=== PATIENT | male | born 1965 | race Caucasian/White ===

== ENCOUNTER 2020-02-20 11:55 | Emergency (ER) | payer OTHER, SELFPAY ==
[2020-02-20 12:22] VITALS: BP 144/86; PULSE 100; RESP 20; TEMP 36.6; O2SAT 100
--- NOTE | 2020-02-20 12:25 | ED.SKABFB ---
HPI - Skin/Abscess/Foreign Bdy General Chief complaint: Skin/Abscess/Foreign Body Stated complaint: Rash all over Time Seen by Provider: 02/20/20 12:32 Source: patient and RN notes reviewed History of Present Illness HPI narrative: Patient is a 54-year-old male who presents to the urgent care with complaints of a rash all over . Patient states that on Wednesday he was mowing and woke up Wednesday evening with itchiness to the ankles. Patient states it is now on his bilateral knees, abdomen and bilateral arms. Patient has been using [id number] itch cream from the pharmacy but denies any relief. Patient has not taken any Benadryl. No other acute complaints. No acute distress noted. Patient read the plan of care. Some parts of this dictation were generated by voice recognition software and may contain typographical and/or grammatical inaccuracies. Related Data Home Medications Medication Instructions Recorded Confirmed atorvastatin 80 mg PO DAILY 02/20/20 02/20/20 hydrochlorothiazide 12.5 mg PO DAILY 02/20/20 02/20/20 Allergies Allergy/AdvReac Type Severity Reaction Status Date / Time No Known Allergies Allergy Verified 02/20/20 12:34 Review of Systems Review of Systems: Narrative: CONSTITUTIONAL: Denies fever, chills, or sweats. EYES: Denies visual changes, redness, or discharge. ENT: Denies rhinorrhea, congestion, sore throat, or otalgia. CARDIOVASCULAR: Denies chest pain, palpitations, or edema. RESPIRATORY: Denies cough or dyspnea. GASTROINTESTINAL: Denies abdominal pain, nausea, vomiting, or diarrhea. GENITOURINARY: Denies dysuria or hematuria. SKIN: Reports of itchy red rash bilateral ankles, knees, arms and abdomen MUSCULOSKELETAL: Denies back pain, joint pain, or myalgia. NEUROLOGIC: Denies headache, numbness, or weakness. All other systems reviewed are negative, except as documented in HPI. [facility] Past Medical History Medical History (Updated 02/20/20 @ 12:45 by RON Brock) History of CVA (cerebrovascular accident) Hypercholesterolemia Hypertension Comments At the time of my signature, I reviewed and agree with the nursing past medical, surgical, social, and family history. There is no relevant family history pertinent to the patient complaint. Exam Narrative: Exam Narrative: GENERAL: This is a well-nourished, well-developed patient, poor hygiene HEAD: normocephalic, atraumatic. EYES: PERRL. Sclera clear/white. Vision is grossly intact. EARS: External ears normal NOSE: External nose normal with no obvious nasal discharge, nares without redness, no rhinorrhea. THROAT: Mucous membranes moist NECK: Neck supple, SKIN: Pruritic erythemic pustular scabies lesions noted to the bilateral lower extremities, bilateral knees, bilateral wrists, and around the waistline. good texture and turgor. NEURO: awake, alert, and oriented to person, place and time. There were no obvious focal neurologic abnormalities. EXTREMITIES: No clubbing, cyanosis, or edema. Course Vital Signs Vital signs: Vital Signs Temperature 97.8 F 02/20/20 12:22 Pulse Rate 100 02/20/20 12:22 Respiratory Rate 02/20/20 12:22 Blood Pressure 144/86 H 02/20/20 12:22 Pulse Oximetry 100 02/20/20 12:22 Temperature 97.8 F 02/20/20 12:22 Pulse Rate 100 02/20/20 12:22 Respiratory Rate 02/20/20 12:22 Blood Pressure 144/86 H 02/20/20 12:22 Pulse Oximetry 100 02/20/20 12:22 Reviewed-patient is informed that they may have pre-hypertension or hypertension based on a blood pressure reading in the department. I recommend the patient call the primary care provider listed on their discharge instructions or a physician of their choice this week to arrange follow-up for further evaluation of possible pre-hypertension or hypertension. MDM - Skin/Abscess/Foreign Bdy MDM Narrative Medical decision making narrative: Advised the patient to take the oral medication exactly how directed. It is important th
== END 2020-02-20 12:50 | disposition home or self-care (01) ==
PROVIDERS: Emergency Provider Nurse Practitioner Family; PCP Family Medicine
DX: B86 Scabies (principal); Z86.73 Personal history of transient ischemic attack (TIA), and cerebral infarction without residual deficits; E78.00 Pure hypercholesterolemia, unspecified; I10 Essential (primary) hypertension
CPT/HCPCS: 99213; G0463

== ENCOUNTER 2020-02-26 10:25 | Emergency (ER) | payer OTHER, SELFPAY ==
--- NOTE | 2020-02-26 10:34 | ED.EXTPRO ---
HPI - Extremity Problem General Chief complaint: Skin/Abscess/Foreign Body Stated complaint: left foot swollen Time Seen by Provider: 02/26/20 10:55 Source: patient and RN notes reviewed Mode of arrival: ambulatory Limitations: no limitations History of Present Illness HPI Narrative: 54-year-old male presents with concern for left foot swelling, pain, redness. Reports he was treated for scabies 1 week ago. Reports the rash on his bilateral lower legs have turned to scabs which she has been scratching. Reports the last 2 days he has had redness, swelling, pain to the left foot, mainly on the dorsal aspect of the foot. He denies intervention. MD Complaint: extremity swelling Related Data Home Medications Medication Instructions Recorded Confirmed atorvastatin 80 mg PO DAILY 02/20/20 02/26/20 hydrochlorothiazide 12.5 mg PO DAILY 02/20/20 02/26/20 Allergies Allergy/AdvReac Type Severity Reaction Status Date / Time No Known Allergies Allergy Verified 02/26/20 10:49 Review of Systems Review of Systems: Narrative: CONSTITUTIONAL: Denies malaise, chills, sweats, or fever. CARDIOVASCULAR: Denies chest pain, palpitations, or edema. RESPIRATORY: Denies cough or dyspnea. SKIN: Reports left foot redness, swelling, tenderness. Reports scabs from healing rash MUSCULOSKELETAL: Denies myalgia. Reports left foot pain NEUROLOGIC: Denies numbness, weakness All systems reviewed & are unremarkable except as noted in HPI and below PMFSH Past Medical History Medical History (Updated 02/26/20 @ 11:06 by Terra Salgado NP) History of CVA (cerebrovascular accident) Hypercholesterolemia Hypertension Comments At time of signature, agree with nursing past medical, surgical, social and family history. There is no relevant family history pertinent to the presenting complaint Exam Narrative: Exam Narrative: GENERAL: Well-appearing, well-nourished, and in no acute distress. HEAD: Normocephalic, atraumatic. EYES: PERRLA, conjunctivae clear NECK: Supple. CHEST: Speaks in full sentences. No respiratory distress. HEART: Regular rate and rhythm. Normal and equal peripheral pulses. EXTREMITIES: Left foot and digits have normal strength and sensation, normal range of motion. Distal pulses palpable and equal bilaterally, skin warm, dry, pink. Capillary refill less than 3 seconds. SKIN: Warm, dry bilateral feet and ankles have multiple scabs on scabies rash. Left foot is mildly erythematous, edematous, tender, mainly in the dorsal aspect, consistent with cellulitis NEURO: Alert and oriented x3. PSYCH: Normal mood and affect Course Course Emergency Course: Patient is aware of diagnosis, understands and agrees to treatment plan. Anticipatory guidance given. Patient agrees to follow-up as directed and is aware of reasons to seek care at the emergency department. Portions of this record may have been created with voice recognition software Vital Signs Vital signs: Vital Signs Temperature 99.9 F H 02/26/20 10:41 Pulse Rate 81 02/26/20 10:41 Respiratory Rate 20 02/26/20 10:41 Blood Pressure 130/77 02/26/20 10:41 Pulse Oximetry 99 02/26/20 10:41 Temperature 99.9 F H 02/26/20 10:41 Pulse Rate 81 02/26/20 10:41 Respiratory Rate 20 02/26/20 10:41 Blood Pressure 130/77 02/26/20 10:41 Pulse Oximetry 99 02/26/20 10:41 Reviewed. MDM - Extremity (Nontraumatic) MDM Narrative Medical decision making narrative: Exam findings show no acute concerns or changes; patient is non-toxic appearing and is in no distress. Patient is appropriate for outpatient treatment and follow-up. Differential Diagnosis Differential diagnosis: Likely gout, cellulitis, superficial thrombophlebitis, deep venous thrombosis of upper extremity and lower extremity edema Critical Care Time Critical Care Time Critical Care Time: No Discharge Plan Discharge Clinical Impression: Cellulitis Qualifiers: Site of cellulitis: extremity Site of radha
[2020-02-26 10:41] VITALS: BP 130/77; PULSE 81; RESP 20; TEMP 37.7; O2SAT 99
== END 2020-02-26 11:09 | disposition home or self-care (01) ==
PROVIDERS: Emergency Provider Nurse Practitioner; PCP Family Medicine
DX: L03.116 Cellulitis of left lower limb (principal); I10 Essential (primary) hypertension
CPT/HCPCS: 99213; G0463

== ENCOUNTER 2021-01-21 11:49 | Emergency (ER) | payer OTHER, SELFPAY ==
[2021-01-21 12:20] VITALS: BP 144/81; PULSE 77; RESP 20; TEMP 37.2; O2SAT 100
--- NOTE | 2021-01-21 12:32 | ED.EAR ---
HPI - Ear Problem General Chief complaint: Ear Stated complaint: Some loss of hearing in both Ears Time Seen by Provider: 01/21/21 12:32 Source: patient and family History of Present Illness HPI Narrative: PATIENT PRESENTS WITH BILATERAL EAR PAIN. MD Complaint: ear pain Location: bilateral Severity: mild Relieving factors: nothing Exacerbating factors: nothing Discharge from ear: Reports no Associated symptoms ear: decreased hearing Related Data Home Medications Medication Instructions Recorded Confirmed atorvastatin 80 mg PO DAILY 02/20/20 02/26/20 hydrochlorothiazide 12.5 mg PO DAILY 02/20/20 02/26/20 omega 7-oey-sby-fish oil [Fish Oil] cap PO 01/21/21 Allergies Allergy/AdvReac Type Severity Reaction Status Date / Time No Known Allergies Allergy Verified 01/21/21 12:34 Review of Systems Review of Systems: CONSTITUTIONAL: Denies fever, chills, or sweats. EYES: Denies visual changes, redness, or discharge. ENT: Denies rhinorrhea, congestion, sore throat, or otalgia. CARDIOVASCULAR: Denies chest pain, palpitations, or edema. RESPIRATORY: Denies cough or dyspnea. GASTROINTESTINAL: Denies abdominal pain, nausea, vomiting, or diarrhea. GENITOURINARY: Denies dysuria or hematuria. SKIN: Denies rash or itching. MUSCULOSKELETAL: Denies back pain, joint pain, or myalgia. NEUROLOGIC: Denies headache, numbness, or weakness. PSYCHIATRIC: Denies anxiety or depression. [facility] Past Medical History Medical History (Updated 01/21/21 @ 12:53 by RON Mandujano) History of CVA (cerebrovascular accident) Hypercholesterolemia Hypertension Comments At time of signature, agree with nursing past medical, surgical, social and family history. There is no relevant family history pertinent to the presenting complaint Exam Narrative: GENERAL: Well-appearing, well-nourished, and in no acute distress. HEAD: Normocephalic, atraumatic. EYES: PERRLA and EOMI. ENT: Nares clear, no rhinorrhea or epistaxis. Mucous membranes moist. Moderate amount of impacted cerumen to both ears NECK: Supple. CHEST: Clear to auscultation. No respiratory distress. HEART: Regular rate and rhythm. No murmur heard. Normal peripheral pulses. ABDOMEN: Soft, nontender, nondistended, normal active bowel sounds. EXTREMITIES: Normal range of motion. No edema. SKIN: Warm, dry, no rash. NEURO: No focal deficits. Alert and oriented x3. Miranda Coma Scale Eye Opening: Spontaneous 4 Mather Coma Scale Motor: Obeys Commands 6 Mather Coma Scale Verbal: Oriented 5 Miranda Coma Scale Total 15 Course Vital Signs Vital signs: Vital Signs Temperature 37.2 C 01/21/21 12:20 Pulse Rate 77 01/21/21 12:20 Respiratory Rate 20 01/21/21 12:20 Blood Pressure 144/81 H 01/21/21 12:20 Pulse Oximetry 100 01/21/21 12:20 Temperature 37.2 C 01/21/21 12:20 Pulse Rate 77 01/21/21 12:20 Respiratory Rate 20 01/21/21 12:20 Blood Pressure 144/81 H 01/21/21 12:20 Pulse Oximetry 100 01/21/21 12:20 Addressed elevated BP today. Today's blood pressure higher than recommended range. Discussed importance of follow -up with PCP and possible long term acute care registered nurse effects/cardiovascular events related to HTN. Currently patient denies headache, dizziness, vision changes, CP or shortness of breath. Critical dx considered and discussed with pt. Educated patient on red flag s/s and to go to ED if s/s occur. Discussed with pt when to return to [facility] or primary care provider. Pt gave verbal undertstanding, all questions were answered, and pt was agreeable to plan Regarding diagnosis, Regarding diagnostic results, Regarding treatment plan, Regarding prescription, Patient indicated understanding of instructions. Critical dx considered and discussed with pt. Educated patient on red flag s/s and to go to ED if s/s occur. Discussed with pt when to return to [facility] or primary care provider. Pt gave verbal undertstanding, all questions were answered, and pt was agreeabl
== END 2021-01-21 12:55 | disposition home or self-care (01) ==
PROVIDERS: Emergency Provider Nurse Practitioner Family; PCP Family Medicine
DX: H61.23 Impacted cerumen, bilateral (principal); Z86.73 Personal history of transient ischemic attack (TIA), and cerebral infarction without residual deficits; E78.00 Pure hypercholesterolemia, unspecified; I10 Essential (primary) hypertension
CPT/HCPCS: 69210; 99213; G0463